=== PATIENT | female | born 1945 | race Caucasian/White ===

== ENCOUNTER 2018-06-04 11:23 | Observation (INO) | payer MEDICARE, MEDICAID ==
[2018-06-04] MEDS ORDERED: Sodium Chloride 0.9% 500 ML IV STA (12:11)
--- NOTE | 2018-06-04 12:25 | ED PDOC ---
HPI: Chest Pain Time Seen by Provider: 06/04/18 11:39 Chief Complaint (Nursing): Chest Pain Chief Complaint (Provider): Chest pain History Per: Patient History/Exam Limitations: no limitations Onset/Duration Of Symptoms: Days (3 ) Current Symptoms Are (Timing): Intermittent Episodes Additional Complaint(s): Pt. with chest pain off and on for 3 days left side going down left arm. Dyspnea yesterday, gone today. No nausea, vomit, diarrhea, abd pain, weakness. No dizziness. Not compliant with doctor. Past Medical History Reviewed: Nursing Documentation, Vital Signs Vital Signs: Last Vital Signs Temp 97.1 F L 06/04/18 11:28 Pulse 64 06/04/18 11:28 Resp 16 06/04/18 11:28 BP 154/72 H 06/04/18 11:28 Pulse Ox 97 06/04/18 11:28 - Medical History PMH: No Chronic Diseases - Surgical History Surgical History: No Surg Hx - Family History Family History: States: Unknown Family Hx - Living Arrangements Living Arrangements: With Family - Social History Current smoker - smoking cessation education provided: Yes - Allergies Allergies/Adverse Reactions: Allergies Allergy/AdvReac Type Severity Reaction Status Date / Time No Known Allergies Allergy Verified 06/04/18 11:28 Review of Systems ROS Statement: Except As Marked, All Systems Reviewed And Found Negative Cardiovascular: Positive for: Chest Pain Respiratory: Positive for: Shortness of Breath Physical Exam - Reviewed Nursing Documentation Reviewed: Yes Vital Signs Reviewed: Yes - Physical Exam Appears: Positive for: Non-toxic, No Acute Distress Head Exam: Positive for: ATRAUMATIC, NORMAL INSPECTION, NORMOCEPHALIC Skin: Positive for: Normal Color, Warm, DRY Eye Exam: Positive for: EOMI, Normal appearance, PERRL ENT: Positive for: Normal ENT Inspection Neck: Positive for: Normal, Painless ROM Cardiovascular/Chest: Positive for: Regular Rate, Rhythm, Chest Non Tender. Negative for: Edema Respiratory: Positive for: CNT, Normal Breath Sounds Gastrointestinal/Abdominal: Positive for: Normal Exam, Soft. Negative for: Tenderness Back: Positive for: Normal Inspection. Negative for: L CVA Tenderness, R CVA Tenderness Extremity: Positive for: Normal ROM Neurologic/Psych: Positive for: Alert, Oriented - Laboratory Results Result Diagrams: 06/04/18 12:24 06/04/18 12:24 Interpretation Of Abn Labs: no acute - ECG ECG: Positive for: Interpreted By Me, Viewed By Me ECG Rhythm: Positive for: Normal QRS, Normal ST Segment, Sinus Rhythm O2 Sat by Pulse Oximetry: 97 Pulse Ox Interpretation: Normal - Radiology X-Ray: Interpreted by Me, Viewed By Me X-Ray Interpretation: No Acute Disease - Progress ED Course And Treament: 1400: Took ASA at home today. Feels better. 1412: Pt. agrees to stay for obs. Spoke with Dr. Pacheco. Will admit tele. Disposition - Clinical Impression Clinical Impression: Chest pain - Patient ED Disposition Is Patient to be Admitted: Yes Counseled Patient/Family Regarding: Studies Performed, Diagnosis - Disposition Disposition Time: 14:13 Condition: FAIR - Pt Status Changed To: Hospital Disposition Of: Observation - POA Present On Arrival: None
[2018-06-04 12:37] LABS: BASO % 0.1 % (0.0-2.0); EOS % 0.5 % (0.0-4.0); HEMOGLOBIN 14.3 g/dL (12.0-16.0); LYMPH # 0.7 K/uL (1.0-4.3); LYMPH % 19.2 % (20.0-40.0); MEAN CELL VOLUME 95.7 fl (81.0-99.0); MEAN CORPUSCULAR HEMOGLOBIN 33.3 pg (27.0-31.0); MEAN CORPUSCULAR HGB CONC 34.8 g/dL (33.0-37.0); MEAN PLATELET VOLUME 8.1 fl (7.2-11.7); MONO # 0.2 K/uL (0.0-0.8); MONO % 6.3 % (0.0-10.0); NEUT # 2.8 K/uL (1.8-7.0); NEUT % 73.9 % (50.0-75.0); NRBC % 0.1 % (0.0-0.0); RBC 4.3 Mil/uL (3.80-5.20); WHITE BLOOD COUNT 3.8 K/uL (4.8-10.8)
[2018-06-04 12:41] LABS: PROTHROMBIN TIME 11.6 Seconds (9.8-13.1)
[2018-06-04 12:43] LABS: PARTIAL THROMBOPLASTIN TIME 31.8 Seconds (25.6-37.1)
[2018-06-04 12:49] LABS: ALB/GLOB RATIO 1.2 (1.0-2.1); ALBUMIN 4.7 g/dL (3.5-5.0); ALT/SGPT 30 U/L (9-52); AST/SGOT 30 U/L (14-36); BLOOD UREA NITROGEN 8 mg/dl (7-17); CALCIUM 10.1 mg/dL (8.4-10.2); GFR NON-AFRICAN AMERICAN > 60; LIPASE 97 U/L (23-300)
--- NOTE | 2018-06-04 14:39 | CP.PCM.HP ---
History of Present Illness - History of Present Illness History of Present Illness: Patient seen and examined at bedside, asymptomatic at present. 72 yo female with no pmhx presents to the ED with chest pain that radiates to the back. States that the pain started yesterday and is worse when she inhales deeply. States that she has not had this pain before. Reports that the pain is sharp, denies burning or pressure. She states that the pain has improved since yesterday but was present overnight. States that the pain starts in her chest and radiates to the middle of her back but does not radiate elsewhere. States that she is not able to reproduce the pain except when she inhales deeply she can sometimes feel the pain worsen. Pain is not associated with any SOB, CP, dizziness, palpitations, diaphoresis. Denies any cough or upper respiratory symptoms. States that she has not been constipated or had diarrhea in the past. Denies any changes in urine or bowel movements. 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 She denies any other acute symptoms including N/V/F/C/SOB/CP. PCP: Dr. Pavan Ramírez PMHx: denies PSHx: denies Meds: denies All: NKDA FH: noncontributory SH: smokes two cigarettes a day, drinks alcohol on weekends, no illicit drug use ED course: -CXR - no active pulmonary disease -Troponin I - negative -EKG - NSR, normal ST, normal QRS -chemistry - lipase, AST, ALT w/n/l; bili 2.5 elevated Present on Admission - Present on Admission Any Indicators Present on Admission: No Review of Systems - Constitutional Constitutional: As Per HPI - Cardiovascular Cardiovascular: Chest Pain. absent: Irregular Heart Rhythm, Pedal Edema - Respiratory Respiratory: As Per HPI - Gastrointestinal Gastrointestinal: absent: Diarrhea, Nausea, Vomiting - Neurological Neurological: As Per HPI Past Patient History - Past Social History Smoking Status: Light Smoker < 10 Cigarettes Daily - PSYCHIATRIC Hx Substance Use: No - SURGICAL HISTORY Hx Surgeries: No Meds Allergies/Adverse Reactions: Allergies Allergy/AdvReac Type Severity Reaction Status Date / Time No Known Allergies Allergy Verified 06/04/18 11:28 Physical Exam - Constitutional Appears: Well, Non-toxic, No Acute Distress - Head Exam Head Exam: ATRAUMATIC, NORMOCEPHALIC - Eye Exam Eye Exam: EOMI, Normal appearance - ENT Exam ENT Exam: Mucous Membranes Moist, Normal Exam - Neck Exam Neck exam: Positive for: Normal Inspection - Respiratory Exam Respiratory Exam: Clear to Auscultation Bilateral, NORMAL BREATHING PATTERN. absent: Chest Wall Tenderness, Rales, Rhonchi, Wheezes, Respiratory Distress - Cardiovascular Exam Cardiovascular Exam: REGULAR RHYTHM, +S1, +S2 - GI/Abdominal Exam GI & Abdominal Exam: Normal Bowel Sounds, Soft. absent: Distended, Pulsatile Mass, Tenderness - Extremities Exam Extremities exam: Positive for: normal capillary refill, normal inspection, pe sage pulses present. Negative for: calf tenderness, pedal edema, tenderness - Back Exam Back exam: NORMAL INSPECTION. absent: CVA tenderness (L), CVA tenderness (R), paraspinal tenderness, vertebral tenderness - Neurological Exam Neurological exam: Alert, Oriented x3 - Psychiatric Exam Psychiatric exam: Normal Affect, Normal Mood - Skin Skin Exam: Dry, Intact, Warm Results - Vital Signs Recent Vital Signs: Last Vital Signs Temp 97.1 F L 06/04/18 11:28 Pulse 64 06/04/18 11:28 Resp 16 06/04/18 11:28 BP 154/72 H 06/04/18 11:28 Pulse Ox 97 06/04/18 14:13 - Labs Result Diagrams: 06/04/18 12:24 06/04/18 12:24 Labs: Laboratory Results - last 24 hr 06/04/18 06/04/18 06/04/18 12:24 12:24 12:24 WBC 3.8 L RBC 4.30 Hgb 14.3 Hct 41.1 MCV 95.7 MCH 33.3 H MCHC 34.8 RDW 12.0 Plt Count 107 L MPV 8.1 Neut % (Auto) 73.9 Lymph % (Auto) 19.2 L Jay % (Auto) 6.3 Eos % (Auto) 0.5 Baso % (Auto) 0.1 Neut # (Auto) 2.8 Lymph # (Auto) 0.7 L Jay # (Auto) 0.2 Eos # (Auto) 0.0 Baso # (Auto) 0.0 PT 11.6 INR 1.0 APTT 31.8 Sodium 141 Potassium 4.5 Chloride 105 Carbon Dioxide 30 Anion Gap 11 BUN 8 Creatinine 0.8 Est GFR ( Amer) > 60 Est GFR (Non-Af Amer) > 60 Random Glucose 113 H Calcium 10.1 Total Bilirubin 2.9 H AST 30 ALT 30 Alkaline Phosphatase 49 Troponin I < 0.0120 Total Protein 8.6 H Albumin 4.7 Globulin 3.9 Albumin/Globulin Ratio 1.2 Lipase 97 Assessment & Plan - Assessment and Plan (Free Text) Assessment: 72 yo female with no pmhx presents to the ED for atypical chest pain and epigastric/flank pain. Will evaluate patient to r/o ACS vs gastritis vs biliary colic vs ureterolithiasis Plan: 1. Atypical chest pain - acute, asymptomatic at present - repeat EKG in AM - serial troponins 2. Abdominal pain - acute, asymptomatic at present - pantoprazole 40 mg daily - abdominal US, r/o biliary source - UA - ordered evaluate for ureterolithiasis - repeat LFTs in AM 3. DVT prophylaxis - lovenox 40 mg - Date & Time Date: 06/04/18 Time: 15:24
--- NOTE | 2018-06-04 15:04 | RAD ---
Date of service: 06/04/2018 HISTORY: dyspnea COMPARISON: No prior. FINDINGS: LUNGS: The lungs are well inflated and clear. PLEURA: No pleural effusions or pneumothorax. CARDIOVASCULAR: The heart is normal in size. No aortic atherosclerotic calcification present. OSSEOUS STRUCTURES: Within normal limits for the patient's age. VISUALIZED UPPER ABDOMEN: Normal. OTHER FINDINGS: None. IMPRESSION: No active pulmonary disease.
--- NOTE | 2018-06-04 17:08 | US ---
Date of service: 06/04/2018 HISTORY: epigastric pain, ?flank pain COMPARISON: None. TECHNIQUE: Sonographic evaluation of the abdomen. FINDINGS: LIVER: Measures 13.0 cm. Normal echogenicity of the liver parenchyma. There is a 9.7 x 7.5 x 8.3 cm well-circumscribed round anechoic mass with smooth margins and internal echoes without central flow on color Doppler imaging. No intrahepatic bile duct dilatation. GALLBLADDER: There are no calcified gallstones. There is mild gallbladder wall thickening and ring down artifacts in the posterior wall most compatible with adenomyomatosis. COMMON BILE DUCT: Measures 3.0 mm. No stones. No dilatation. PANCREAS: Obscured by bowel gas. RIGHT KIDNEY: Measures 9.1cm. Normal echogenicity. No calculus, mass, or hydronephrosis. LEFT KIDNEY: Measures 7.6cm. Normal echogenicity. No calculus, mass, or hydronephrosis. SPLEEN: Normal in size and contour. No mass. AORTA: No aneurysmal dilatation. IVC: Unremarkable. OTHER FINDINGS: None. IMPRESSION: Large 9.7 cm complicated cystic mass in the right hepatic lobe which may represent a complicated cyst, however infectious/inflammatory and neoplastic etiologies cannot be entirely excluded. Dedicated CT scan of the abdomen without and with intravenous contrast with liver protocol would be helpful for further characterization.
[2018-06-04] MEDS ORDERED: Enoxaparin 40 mg Syringe SC SCH (22:00)
[2018-06-05 05:41] LABS: HEMOGLOBIN 14.7 g/dL (12.0-16.0); MEAN CELL VOLUME 96.4 fl (81.0-99.0); MEAN CORPUSCULAR HEMOGLOBIN 32.5 pg (27.0-31.0); MEAN CORPUSCULAR HGB CONC 33.7 g/dL (33.0-37.0); RBC 4.53 Mil/uL (3.80-5.20); RED CELL DISTRIBUTION WIDTH 12.3 % (11.5-14.5); WHITE BLOOD COUNT 3.7 K/uL (4.8-10.8)
[2018-06-05 06:13] LABS: ALB/GLOB RATIO 1.2 (1.0-2.1); ALBUMIN 4.8 g/dL (3.5-5.0); ALT/SGPT 31 U/L (9-52); AST/SGOT 32 U/L (14-36); BLOOD UREA NITROGEN 14 mg/dl (7-17); CALCIUM 9.8 mg/dL (8.4-10.2); GFR NON-AFRICAN AMERICAN > 60
[2018-06-05] MEDS: Pneumococcal 23-Valent Vaccine IM ONE ×2 (06:35→10:00)
[2018-06-05] MEDS ORDERED: Pantoprazole 40 mg EC Tab PO SCH (07:30)
[2018-06-05 08:17] VITALS: BP 129/86; PULSE 70; RESP 20; TEMP 97.5; O2SAT 98
--- NOTE | 2018-06-05 10:32 | CP.PCM.PCO ---
Against Medical Advice - AMA Patient Left Against Medical Advice: The patient declines admission to the hospital and wishes to leave the Hospital. This action is against my medical advice. This decision was made with informed refusal. The patient was told that admission to the hospital is necessary. Explanation of the reasons why were discussed. The risks of leaving were explained to the patient and include, but are not limited to, worsening of known or currently unknown conditions, permanent disability and from undiagnosed or untreated conditions. The patient has the capacity to make this informed decision and understands my explanation of the current medical problem and risks of leaving. The patient voluntarily accepts these risks and signed an AMA form documenting our conversation. The patient was given the opportunity to ask questions and reconsider. The patient was encouraged to return to the Emergency Department at any time for further care. Assessment/Plan - Assessment and Plan (Free Text) Assessment: 72 yo female patient presented to the ED for abdominal pain and left flank pain. Plan: Patient was seen and evaluated today and present with son. Per nursing, patient had gotten confused overnight and took out IV and took off information bracelet. Son was called and has been with her since 5 AM. States that she has had some memory problems in the past but nothing this severe. Says she keeps asking to go home and that he feels that she would be more comfortable at home. States he will follow up with outpatient doctors and will take her home now. Presented him and patient with risks of leaving against medical advice and informed them to return to the ED if any acute problems occured. Patient signed AMA form and was nurse signed as witness. Patient given a prescription for a CT scan of head and given names of Neurologists in area as well as gastroenterologists to discuss liver cyst that was found on US of abdomen. - Date & Time Date: 06/05/18 Time: 10:39
--- NOTE | 2018-06-05 11:11 | CARD ---
APPROVED REPORT Date of service: 06/04/2018 EKG Measurement Heart [id number] <Conclusion> Sinus bradycardia Otherwise normal ECG
== END 2018-06-05 10:00 | disposition left against medical advice (07) ==
LOC: H.ER 11:23 → H.ERHOLD 14:11 → H.TEL 16:36
PROVIDERS: ADMIT Hospitalist; ATTEND Hospitalist
DX: R10.12 Left upper quadrant pain (principal); R07.89 Other chest pain; R10.13 Epigastric pain; F17.210 Nicotine dependence, cigarettes, uncomplicated; K76.89 Other specified diseases of liver; R41.0 Disorientation, unspecified
CPT/HCPCS: 36415; 71045; 76700; 80053; 83690; 84484; 85025; 85027; 85610; 85730; 93005; 96360; 96374; 99285; G0378; J1650; J2270; J7040

== ENCOUNTER 2018-06-11 19:41 | Emergency (ER) | payer MEDICARE, MEDICAID ==
[2018-06-11 19:53] VITALS: O2SAT 100
[2018-06-11 22:44] VITALS: BP 130/80; PULSE 78; RESP 18; TEMP 98
--- NOTE | 2018-06-11 22:46 | ED PDOC ---
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 Patient developed a cold sore on her right upper lip yesterday morning. She applied over the counter cold sore cream in the afternoon and developed significant swelling to the lip starting last night. Believes she may have an allergy to the cream. Denies any known allergies. Patient also complaining of mild tenderness over the left sternal border only present when pressing on the chest for the last few weeks. Denies fever, chills, shortness of breath, throat swelling, difficulty swallowing, cough, dizziness, palpitations, diaphoresis, arm pain, neck pain, headache, sore throat, mouth sores, eye pain, vision changes, rash, N/V, abdominal pain. Past Medical History Reviewed: Historical Data, Nursing Documentation, Vital Signs Vital Signs: Last Vital Signs Temp 98.7 F 06/11/18 19:51 Pulse 71 06/11/18 19:51 Resp 16 06/11/18 19:51 BP 160/75 H 06/11/18 19:51 Pulse Ox 100 06/11/18 19:51 - Medical History PMH: Denies: HIV, Chronic Kidney Disease - Family History Family History: States: Unknown Family Hx - Home Medications Home Medications: Ambulatory Orders Medication Instructions Recorded Valacyclovir HCl [Valtrex] 1,000 mg PO Q12H #2 tablet 06/11/18 - Allergies Allergies/Adverse Reactions: Allergies Allergy/AdvReac Type Severity Reaction Status Date / Time No Known Allergies Allergy Verified 06/11/18 19:54 Review of Systems ROS Statement: Except As Marked, All Systems Reviewed And Found Negative Constitutional: Negative for: Fever, Chills Eyes: Negative for: Pain, Vision Change, Conjunctivae Inflammation, Eyelid Inflammation, Redness ENT: Positive for: Other (right upper lip swelling over vesicular lesion (cold sore)). Negative for: Ear Pain, Nose Pain, Nose Congestion, Mouth Pain, Mouth Swelling, Throat Pain, Throat Swelling Cardiovascular: Positive for: Chest Pain (mild tenderness left side). Negative for: Palpitations, Light Headedness Respiratory: Negative for: Cough, Shortness of Breath, Wheezing Gastrointestinal: Negative for: Nausea, Vomiting, Abdominal Pain Genitourinary Female: Negative for: Dysuria, Frequency Musculoskeletal: Negative for: Neck Pain, Shoulder Pain, Arm Pain, Back Pain, Hand Pain, Leg Pain, Foot Pain Skin: Negative for: Rash, Lesions, Bruising Neurological: Negative for: Weakness, Numbness, Incoordination, Confusion, Altered Mental Status, Headache, Dizziness Physical Exam - Reviewed Nursing Documentation Reviewed: Yes Vital Signs Reviewed: Yes - Physical Exam Appears: Positive for: Well, Non-toxic, No Acute Distress Head Exam: Positive for: ATRAUMATIC, NORMAL INSPECTION, NORMOCEPHALIC Skin: Positive for: Normal Color, Warm, Dry. Negative for: Rash Eye Exam: Positive for: Normal appearance, EOMI, PERRL. Negative for: Periorbital swelling, Periorbital tenderness, Conjunctival injection, Scleral icterus ENT: Positive for: Pharynx Is (non-erythematous; no soft palate or pharyngeal swelling), TM Is/Are (normal), Other (vesicular lesion with yellow drainage and significant swelling to right upper lip ) Neck: Positive for: Normal, Painless ROM Cardiovascular/Chest: Positive for: Regular Rate, Rhythm. Negative for: Chest Non Tender (mild tenderness with pressure over left costosternal joints approx. ribs 3-5) Respiratory: Positive for: Normal Breath Sounds. Negative for: Decreased Breath Sounds, Stridor, Wheezing, Respiratory Distress Pulses-Radial (L): 2+ Pulses-Radial (R): 2+ Back: Positive for: Normal Inspection Extremity: Positive for: Normal ROM Neurologic/Psych: Positive for: Alert, cell preparer II-XII (intact), Oriented, Gait (steady). Negative for: Motor/Sensory Deficits - ECG ECG: Positive for: Interpreted By Me, Viewed By Me ECG Rhythm: Positive for: Normal QRS, Normal ST Segment, Sinus Bradycardia. Negative for: ST/T Changes O2 Sat by Pulse Oximetry: 100 Disposition - Clinical Impression Clinical Impression: Cold sore Discussed With : Marck Pretty (recommends valtrex treatment outpatient) Counseled Patient/Family Regarding: Studies Performed, Diagnosis, Need For Followup, Rx Given, Smoking Cessation - Disposition Referrals: Porfirio Lowery MD [Staff Provider] - Disposition: Routine/Home Disposition Time: 22:25 Condition: STABLE Additional Instructions: Take valtrex every 12 hours for 1 day Followup with primary doctor within 2 days Return to ER with new or worsening symptoms Prescriptions: Valacyclovir HCl [Valtrex] 1,000 mg PO Q12H #2 tablet Instructions: Cold Sores (Oral Herpes) Forms: [employer] (Congolese) Medical Decision Making Medical Decision Making: Initial Plan: * prednisone * benadryl * EKG EKG: rate 57; NSR, bradycardic; normal intervals; No ST elevations Diagnostic testing, prescription use, and importance of followup discussed with patient and family. Also educated on signs to return to ER. Pt and family und erstand and agree with plan of care. Pt stable for discharge. Impression: Herpes Labialis, Allergic reaction Plan: * valtrex * discontinue cream use * ibuprofen for costosternal tenderness * followup PMD * return with new/worsening symptoms
--- NOTE | 2018-06-12 07:11 | CARD ---
APPROVED REPORT Date of service: 06/11/2018 EKG Measurement Heart [id number] <Conclusion> Sinus bradycardia Otherwise normal ECG
== END 2018-06-11 22:43 | disposition home or self-care (01) ==
LOC: H.ER 19:41
DX: T78.40XA Allergy, unspecified, initial encounter (principal); B00.1 Herpesviral vesicular dermatitis; R00.1 Bradycardia, unspecified